=== PATIENT | female | born 1980 | race Caucasian/White ===

== ENCOUNTER 2021-01-22 12:52 | Emergency (ER) | payer MEDICAID ==
[~2021-01-22] VITALS: Ht 165.1 cm; Wt 77.0 kg
[2021-01-22] MEDS ORDERED: ACETAMINOPHEN 325MG TABLET PO STA (15:06)
[2021-01-22] MEDS ORDERED: IBUP-2029 PO (16:31)
[2021-01-22] MEDS ORDERED: FLUT9.9S BOTHNSTRLS (16:31)
[2021-01-22] MEDS ORDERED: D-ME473S50 PO (16:31)
[2021-01-22 16:48] VITALS: BP 122/74
== END 2021-01-22 16:48 | disposition home or self-care (01) ==
LOC: ER 12:52
DX: J06.9 Acute upper respiratory infection, unspecified (principal); Z20.822 Contact with and (suspected) exposure to COVID-19
CPT/HCPCS: 71045; 81025; 87426; 99284

== ENCOUNTER 2023-07-27 18:18 | Emergency (ER) | payer MEDICAID ==
[~2023-07-27] VITALS: Ht 165.1 cm; Wt 68.0 kg
[~2023-07-27 18:18] MED LIST: D-ME473S50 PO; FLUT9.9S BOTHNSTRLS; IBUP-2029 PO
[2023-07-27 18:52] VITALS: TEMP 98.9; O2SAT 100
[2023-07-27 19:54] LABS: CLARITY URINE CLOUDY (CLEAR); COLOR URINE ORANGE (YELLOW); GLUCOSE URINE NEGATIVE (NEGATIVE); KETONES URINE NEGATIVE (NEGATIVE); LEUKOCYTE ESTERASE URINE 2+ (NEGATIVE); NITRITE URINE NEGATIVE (NEGATIVE); OCCULT BLOOD URINE 3+ (NEGATIVE); PH URINE >=9.0 (4.5-8.0); PROTEIN URINE 2+ (NEGATIVE); SPECIFIC GRAVITY URINE 1.018 (1.005-1.030)
[2023-07-27 20:10] LABS: BASOPHILS % 0.7 % (0.0-2.0); EOSINOPHILS % 1.2 % (0.0-5.0); HEMATOCRIT. 35.4 % (36.0-48.0); HEMOGLOBIN. 11.5 g/dL (12.0-16.0); LYMPHOCYTES % 14.4 % (20.0-50.0); MEAN CORPUSCULAR HEMOGLOBIN 26.3 pg (28.0-32.0); MEAN CORPUSCULAR HGB CONC 32.6 g/dL (31.0-37.0); MEAN CORPUSCULAR VOLUME 80.6 fL (81.0-99.0); MEAN PLATELET VOLUME 9.2 fl (7.4-10.4); MONOCYTES % 4.7 % (2.0-8.0); PLATELET 353 x1000/uL (130-400); RED BLOOD CELL COUNT 4.39 mill/uL (4.2-5.4); RED CELL DISTRIBUTION WIDTH 15.7 % (11.6-14.6); WHITE BLOOD COUNT 10.9 x1000/uL (4.5-11.0)
[2023-07-27 20:33] LABS: ALANINE AMINOTRANSFERASE 10 IU/L (10-49); ALBUMIN 4.1 g/dL (3.2-4.8); ASPARTATE AMINOTRANSFERASE 19 IU/L (<34); BILIRUBIN TOTAL 0.3 mg/dL (0.1-1.0); CALCIUM 8.7 mg/dL (8.7-10.4); CARBON DIOXIDE 27 mEq/L (21-32); CHLORIDE 106 mEq/L (98-107); CREATININE 0.7 mg/dL (0.6-1.0); GLUCOSE 87 mg/dL (70-105); POTASSIUM 3.7 mEq/L (3.5-5.1); PROTEIN TOTAL 7.6 g/dL (6.0-8.3); SODIUM 138 mEq/L (136-145); UREA NITROGEN BLOOD 5 mg/dL (9-23)
[2023-07-27 21:03] LABS: BACTERIA URINE 3+; RBC URINE TNTC /hpf (0-2); SQUAMOUS EPITHELIAL CELL URINE 2+ /lpf (RARE/1+); WBC URINE 15-25 /hpf (0-2)
[2023-07-27 21:15] VITALS: BP 118/62; PULSE 93; RESP 18
[2023-07-27] MEDS: CEFTRIAXONE SODIUM 1G VIAL IM ONE (21:15)
[2023-07-27] MEDS: ONDANSETRON 4MG ODT PO ONE (21:15)
[2023-07-27] MEDS: KETOROLAC 30MG/ML VIAL IM ONE (21:15)
[2023-07-27 22:09] LABS: HCG SCREEN NEGATIVE
[2023-07-27] MEDS ORDERED: CEFP200T13 MT (22:31)
[2023-07-27] MEDS ORDERED: PHEN-815 MT (22:31)
== END 2023-07-27 23:10 | disposition home or self-care (01) ==
LOC: ER 18:18
DX: N12 Tubulo-interstitial nephritis, not specified as acute or chronic (principal); Z79.899 Other long term (current) drug therapy
CPT/HCPCS: 99285; 76770; 80053; 81003; 81025; 84703; 85025; 87086; 36415; 96372; Q0162; J0696; J1885

== ENCOUNTER 2023-07-29 14:27 | Emergency (ER) | payer MEDICAID ==
[~2023-07-29] VITALS: Ht 165.1 cm; Wt 77.0 kg
[~2023-07-29 14:27] MED LIST changes: +CEFP200T13 MT; +PHEN-815 MT
[2023-07-29 14:45] VITALS: BP 122/72; PULSE 72; RESP 18; TEMP 98.3; O2SAT 100
[2023-07-29] MEDS ORDERED: SULF1TAB48 MT (14:47)
== END 2023-07-29 15:24 | disposition home or self-care (01) ==
LOC: ER 14:27
DX: R11.2 Nausea with vomiting, unspecified (principal); T36.95XA Adverse effect of unspecified systemic antibiotic, initial encounter; N12 Tubulo-interstitial nephritis, not specified as acute or chronic; Z88.8 Allergy status to other drugs, medicaments and biological substances; Y92.89 Other specified places as the place of occurrence of the external cause
CPT/HCPCS: 99283

== ENCOUNTER 2023-12-14 23:12 | Emergency (ER) | payer SELFPAY ==
[~2023-12-14] VITALS: Ht 165.1 cm; Wt 73.0 kg
[~2023-12-14 23:12] MED LIST changes: +SULF1TAB48 MT
[2023-12-14 23:28] VITALS: BP 124/77; PULSE 85; RESP 20; O2SAT 100
[2023-12-14 23:53] LABS: BASOPHILS % 1.1 % (0.0-2.0); EOSINOPHILS % 1.9 % (0.0-5.0); HEMATOCRIT. 36.2 % (36.0-48.0); LYMPHOCYTES % 30.7 % (20.0-50.0); MEAN CORPUSCULAR HEMOGLOBIN 26.9 pg (28.0-32.0); MEAN CORPUSCULAR VOLUME 81.5 fL (81.0-99.0); MEAN PLATELET VOLUME 8.5 fl (7.4-10.4); MONOCYTES % 6.7 % (2.0-8.0); NEUTROPHILS % 59.6 % (40.0-76.0); PLATELET 402 x1000/uL (130-400); RED BLOOD CELL COUNT 4.44 mill/uL (4.2-5.4); RED CELL DISTRIBUTION WIDTH 16.3 % (11.6-14.6); WHITE BLOOD COUNT 7.1 x1000/uL (4.5-11.0)
[2023-12-14 23:58] LABS: CHLORIDE 110 mEq/L (98-107); POTASSIUM 3.6 mEq/L (3.5-5.1); SODIUM 138 mEq/L (136-145)
[2023-12-14 23:59] LABS: CALCIUM 9.3 mg/dL (8.7-10.4); CARBON DIOXIDE 22 mEq/L (21-32)
[2023-12-15 00:04] LABS: CREATININE 0.6 mg/dL (0.6-1.0); GLUCOSE 89 mg/dL (70-105); UREA NITROGEN BLOOD 9 mg/dL (9-23)
[2023-12-15 00:06] LABS: ALANINE AMINOTRANSFERASE 13 IU/L (10-49); ALBUMIN 4.6 g/dL (3.2-4.8); ASPARTATE AMINOTRANSFERASE 21 IU/L (<34)
[2023-12-15 00:07] LABS: BILIRUBIN TOTAL 0.3 mg/dL (0.1-1.0); PROTEIN TOTAL 7.8 g/dL (6.0-8.3)
[2023-12-15 00:15] LABS: BILIRUBIN DIRECT < 0.1 mg/dL (<=3.0)
[2023-12-15 00:16] LABS: TROPONIN I HIGH SENSITIVITY < 4 ng/L (3.0-34)
[2023-12-15 00:35] LABS: CLARITY URINE CLEAR (CLEAR); COLOR URINE YELLOW (YELLOW); GLUCOSE URINE NEGATIVE (NEGATIVE); KETONES URINE NEGATIVE (NEGATIVE); LEUKOCYTE ESTERASE URINE NEGATIVE (NEGATIVE); NITRITE URINE NEGATIVE (NEGATIVE); OCCULT BLOOD URINE NEGATIVE (NEGATIVE); PROTEIN URINE NEGATIVE (NEGATIVE); SPECIFIC GRAVITY URINE 1.002 (1.005-1.030); UROBILINOGEN URINE 0.2 E.U./dL (0.2-1.0)
[2023-12-15 00:44] LABS: HCG SCREEN NEGATIVE
[2023-12-15] MEDS ORDERED: ONDANSETRON HCL 4MG/2ML INJ IM ONE (01:00)
[2023-12-15] MEDS ORDERED: ONDA4TAB50 MT (03:44)
[2023-12-15] MEDS ORDERED: PROT20 MT (03:44)
[2023-12-15] MEDS: ONDANSETRON HCL 4MG/2ML INJ IM NR (04:32)
== END 2023-12-15 04:41 | disposition home or self-care (01) ==
LOC: ER 23:12
DX: R10.13 Epigastric pain (principal); R11.2 Nausea with vomiting, unspecified; Z88.8 Allergy status to other drugs, medicaments and biological substances; Z79.899 Other long term (current) drug therapy
CPT/HCPCS: 99285; 80076; 80048; 84703; 83690; 85025; 84484; 36415; 93005; 74176; 81003; 96372; J2405

== ENCOUNTER 2024-06-18 21:37 | Inpatient (IN) | payer SELFPAY ==
[~2024-06-18] VITALS: Ht 154.9 cm; Wt 78.0 kg
[~2024-06-18 21:37] MED LIST changes: +ONDA4TAB50 MT; +PROT20 MT
[2024-06-18 21:40] VITALS: O2SAT 99
[2024-06-18 22:38] LABS: CLARITY URINE CLEAR (CLEAR); COLOR URINE YELLOW (YELLOW); GLUCOSE URINE NEGATIVE (NEGATIVE); KETONES URINE NEGATIVE (NEGATIVE); LEUKOCYTE ESTERASE URINE NEGATIVE (NEGATIVE); NITRITE URINE NEGATIVE (NEGATIVE); OCCULT BLOOD URINE 3+ (NEGATIVE); PH URINE 6.5 (4.5-8.0); PROTEIN URINE NEGATIVE (NEGATIVE); SPECIFIC GRAVITY URINE 1.007 (1.005-1.030)
[2024-06-18 22:52] LABS: BACTERIA URINE NONE SEEN; RBC URINE 0-2 /hpf (0-2); SQUAMOUS EPITHELIAL CELL URINE RARE /lpf (RARE/1+); WBC URINE 0-2 /hpf (0-2)
[2024-06-18 23:25] LABS: CHLORIDE 104 mEq/L (98-107); POTASSIUM 3.4 mEq/L (3.5-5.1); SODIUM 139 mEq/L (136-145)
[2024-06-18 23:26] LABS: CALCIUM 8.8 mg/dL (8.7-10.4); CARBON DIOXIDE 28 mEq/L (21-32); HEMATOCRIT. 34.5 % (36.0-48.0); HEMOGLOBIN. 11.4 g/dL (12.0-16.0); MEAN CORPUSCULAR HEMOGLOBIN 26.8 pg (28.0-32.0); MEAN CORPUSCULAR HGB CONC 33.1 g/dL (31.0-37.0); MEAN CORPUSCULAR VOLUME 81.1 fL (81.0-99.0); MEAN PLATELET VOLUME 8.5 fl (7.4-10.4); PLATELET 442 x1000/uL (130-400); RED BLOOD CELL COUNT 4.25 mill/uL (4.2-5.4); RED CELL DISTRIBUTION WIDTH 15.6 % (11.6-14.6); WHITE BLOOD COUNT 12.2 x1000/uL (4.5-11.0)
[2024-06-18 23:31] LABS: CREATININE 0.6 mg/dL (0.6-1.0); GLUCOSE 112 mg/dL (70-105); UREA NITROGEN BLOOD 5 mg/dL (9-23)
[2024-06-18 23:49] LABS: TROPONIN I HIGH SENSITIVITY < 4 ng/L (3.0-34)
[2024-06-19 00:22] LABS: DIFFERENTIAL COMMENT 1
[2024-06-19] MEDS: LORAZEPAM 1MG TABLET PO ONE (00:23)
[2024-06-19 00:30] LABS: HCG SCREEN NEGATIVE
[2024-06-19] MEDS ORDERED: AZITHROMYCIN 500MG/250ML 250 ML IV SCH (01:30)
[2024-06-19] MEDS ORDERED: CEFTRIAXONE 1GM/50ML 50 ML IV ONE (01:30)
[2024-06-19 01:34] LABS: TROPONIN I HIGH SENSITIVITY < 4 ng/L (3.0-34)
[2024-06-19 02:33] LABS: ANISOCYTOSIS 1+; PLATELET ESTIMATE SLIGHTLY INCREASED
[2024-06-19 03:15] VITALS: BP 133/83; PULSE 100; RESP 18; TEMP 37; O2SAT 98
[2024-06-19] MEDS ORDERED: CEFTRIAXONE 1GM/50ML 50 ML IV SCH ×2 (04:30→06:45)
[2024-06-19] MEDS ORDERED: CLONIDINE 0.1MG TABLET PO SCH (06:00)
[2024-06-19] MEDS ORDERED: CLONIDINE 0.1MG TABLET PO PRN (06:15)
[2024-06-19] MEDS ORDERED: DOCUSATE SODIUM 100MG CAPSULE PO PRN (06:45)
[2024-06-19] MEDS ORDERED: ONDANSETRON HCL 4MG/2ML INJ IV PRN (06:45)
[2024-06-19] MEDS ORDERED: MAGNESIUM/ALUMINUM HYDROXIDE/SIMETHICONE 30ML UDC PO PRN (06:45)
[2024-06-19 08:00] VITALS: BP 96/41; PULSE 79; RESP 18; TEMP 36.8; O2SAT 100
[2024-06-19] MEDS: IOHEXOL-350 100 ML BOTTLE ONE (09:19)
[2024-06-19 09:25] LABS: HEMATOCRIT. 34.6 % (36.0-48.0); HEMOGLOBIN. 11.3 g/dL (12.0-16.0); MEAN CORPUSCULAR HEMOGLOBIN 26.8 pg (28.0-32.0); MEAN CORPUSCULAR HGB CONC 32.6 g/dL (31.0-37.0); MEAN CORPUSCULAR VOLUME 82.1 fL (81.0-99.0); MEAN PLATELET VOLUME 8.6 fl (7.4-10.4); PLATELET 424 x1000/uL (130-400); RED BLOOD CELL COUNT 4.21 mill/uL (4.2-5.4)
[2024-06-19 09:27] LABS: DIFFERENTIAL COMMENT 1
[2024-06-19] MEDS: ENOXAPARIN 40MG/0.4ML SYR SUBCUT SCH (09:50)
[2024-06-19] MEDS: ACETAMINOPHEN 325MG TABLET PO PRN (09:56)
[2024-06-19 10:29] LABS: CHLORIDE 104 mEq/L (98-107); POTASSIUM 3.5 mEq/L (3.5-5.1); SODIUM 139 mEq/L (136-145)
[2024-06-19 10:30] LABS: CALCIUM 8.9 mg/dL (8.7-10.4); CARBON DIOXIDE 25 mEq/L (21-32)
[2024-06-19 10:35] LABS: CREATININE 0.6 mg/dL (0.6-1.0); GLUCOSE 88 mg/dL (70-105)
[2024-06-19 10:37] LABS: ALANINE AMINOTRANSFERASE 16 IU/L (10-49); ALBUMIN 3.7 g/dL (3.2-4.8); ASPARTATE AMINOTRANSFERASE 21 IU/L (<34); BILIRUBIN TOTAL 0.4 mg/dL (0.1-1.0); PROTEIN TOTAL 7.1 g/dL (6.0-8.3)
[2024-06-19 10:52] LABS: TROPONIN I HIGH SENSITIVITY < 4 ng/L (3.0-34); UREA NITROGEN BLOOD < 5 mg/dL (9-23)
[2024-06-19 12:00] VITALS: BP 104/44; PULSE 77; RESP 20; TEMP 36.4; O2SAT 98
[2024-06-19] MEDS: KETOROLAC 15MG/ML VIAL IV NR (15:14)
[2024-06-19 16:00] VITALS: BP 105/49; PULSE 83; RESP 18; TEMP 36.9; O2SAT 99
[2024-06-19 16:25] LABS: PLATELET ESTIMATE NORMAL
[2024-06-19 20:00] VITALS: BP 113/54; PULSE 96; RESP 19; TEMP 37.2; O2SAT 99
[2024-06-19] MEDS: HYDROCODONE/ACETAMINOPHEN 5/325MG TABLET PO PRN (20:06)
[2024-06-19] MEDS ORDERED: NALOXONE HCL 0.4MG/ML VIAL IV PRN (21:30)
[2024-06-19] MEDS: MORPHINE SULFATE 2 MG/ML INJ (NOT FOR IM USE) IV PRN (22:24)
[2024-06-19] MEDS: LIDOCAINE 5% PATCH TOP PRN (22:25)
[2024-06-19] MEDS: GUAIFENESIN 200MG/10ML SUGAR FREE UDC PO PRN (22:36)
[2024-06-20] VITALS: BP 104/49; PULSE 88; RESP 14; TEMP 37.3; O2SAT 99
[2024-06-20 04:00] VITALS: BP 110/54; PULSE 102; RESP 17; TEMP 36.2; O2SAT 94
[2024-06-20 06:04] LABS: *AMPHETAMINES SCREEN URINE PRESUMPTIVE POSITIVE (NEGATIVE)
[2024-06-20 06:05] LABS: *BARBITURATES SCREEN URINE NEGATIVE (NEGATIVE); *BENZODIAZEPINES SCREEN URINE NEGATIVE (NEGATIVE); *COCAINE SCREEN URINE NEGATIVE (NEGATIVE); CANNABINOID URINE SCREEN NEGATIVE (NEGATIVE); ECSTASY MDMA SCREEN URINE NEGATIVE (NEGATIVE); METHADONE URINE SCREEN NEGATIVE (NEGATIVE); OPIATES URINE SCREEN PRESUMPTIVE POSITIVE (NEGATIVE); PHENCYCLIDINE URINE SCREEN NEGATIVE (NEGATIVE)
[2024-06-20] MEDS: LEVOFLOXACIN 750MG PREMIX 150 ML IV SCH (06:35)
[2024-06-20 08:00] VITALS: BP 109/49; PULSE 91; RESP 18; TEMP 36.7; O2SAT 98
[2024-06-20 12:00] VITALS: BP 119/67; PULSE 87; RESP 17; TEMP 36.3; O2SAT 95
[2024-06-20 13:18] LABS: BASOPHILS % 0.1 % (0.0-2.0); EOSINOPHILS % 14.2 % (0.0-5.0); HEMATOCRIT. 35.7 % (36.0-48.0); HEMOGLOBIN. 11.4 g/dL (12.0-16.0); LYMPHOCYTES % 9.1 % (20.0-50.0); MEAN CORPUSCULAR HEMOGLOBIN 25.7 pg (28.0-32.0); MEAN CORPUSCULAR HGB CONC 31.8 g/dL (31.0-37.0); MEAN PLATELET VOLUME 8.9 fl (7.4-10.4); MONOCYTES % 4.5 % (2.0-8.0); NEUTROPHILS % 72.1 % (40.0-76.0); PLATELET 463 x1000/uL (130-400); RED BLOOD CELL COUNT 4.41 mill/uL (4.2-5.4); RED CELL DISTRIBUTION WIDTH 15.9 % (11.6-14.6)
[2024-06-20 13:23] LABS: CARBON DIOXIDE 28 mEq/L (21-32); CHLORIDE 102 mEq/L (98-107); POTASSIUM 3.4 mEq/L (3.5-5.1); SODIUM 140 mEq/L (136-145)
[2024-06-20 13:29] LABS: CREATININE 0.6 mg/dL (0.6-1.0); GLUCOSE 56 mg/dL (70-105)
[2024-06-20 13:30] LABS: TROPONIN I HIGH SENSITIVITY < 4 ng/L (3.0-34); UREA NITROGEN BLOOD 7 mg/dL (9-23)
[2024-06-20 13:31] LABS: T4 FREE 1.19 ng/dL (0.89-1.76)
[2024-06-20 13:32] LABS: PHOSPHORUS 2.7 mg/dL (2.5-4.9)
[2024-06-20 14:39] LABS: ERYTHROCYTE SEDIMENTATION RATE 49 mm/hr (0-20)
[2024-06-20 16:00] VITALS: BP_SYST 120; BP_SYST 157; BP_DIAS 57; BP_DIAS 61; PULSE 90; RESP 18; TEMP 37.3; O2SAT 97
[2024-06-20] MEDS: POTASSIUM CHLORIDE 20MEQ TABLET SR PO PRN (18:42)
[2024-06-20 20:00] VITALS: BP 116/75; PULSE 88; RESP 16; TEMP 36.7; O2SAT 98
[2024-06-20] MEDS: ATORVASTATIN CALCIUM 20MG TABLET PO SCH (21:13)
[2024-06-21] VITALS: BP 102/61; PULSE 77; RESP 16; TEMP 36.3; O2SAT 98
[2024-06-21 04:00] VITALS: BP 102/57; PULSE 87; RESP 16; TEMP 36.2; O2SAT 97
[2024-06-21 07:31] LABS: HEMATOCRIT. 33.6 % (36.0-48.0); HEMOGLOBIN. 10.9 g/dL (12.0-16.0); MEAN CORPUSCULAR HEMOGLOBIN 26.8 pg (28.0-32.0); MEAN CORPUSCULAR HGB CONC 32.5 g/dL (31.0-37.0); MEAN CORPUSCULAR VOLUME 82.7 fL (81.0-99.0); MEAN PLATELET VOLUME 8.4 fl (7.4-10.4); PLATELET 407 x1000/uL (130-400); RED BLOOD CELL COUNT 4.07 mill/uL (4.2-5.4); RED CELL DISTRIBUTION WIDTH 16.1 % (11.6-14.6)
[2024-06-21 07:36] LABS: DIFFERENTIAL COMMENT 1
[2024-06-21 07:57] LABS: CHLORIDE 106 mEq/L (98-107); POTASSIUM 3.9 mEq/L (3.5-5.1); SODIUM 139 mEq/L (136-145)
[2024-06-21 07:58] LABS: CALCIUM 8.4 mg/dL (8.7-10.4); CARBON DIOXIDE 26 mEq/L (21-32)
[2024-06-21 08:03] LABS: CREATININE 0.5 mg/dL (0.6-1.0); GLUCOSE 88 mg/dL (70-105); UREA NITROGEN BLOOD 6 mg/dL (9-23)
[2024-06-21 08:05] LABS: PHOSPHORUS 2.3 mg/dL (2.5-4.9)
[2024-06-21] MEDS: ASPIRIN 81MG EC TABLET PO SCH (09:44)
[2024-06-21 13:08] VITALS: BP 105/54; PULSE 78; TEMP 37; O2SAT 99
[2024-06-21] MEDS: MAGNESIUM 2 G PREMIX 50 ML IV NR (14:31)
[2024-06-21 15:14] LABS: ANISOCYTOSIS 1+; PLATELET ESTIMATE SLIGHTLY INCREASED
[2024-06-21 16:54] VITALS: BP 113/62; PULSE 74; TEMP 37.1; O2SAT 99
[2024-06-21 20:00] VITALS: BP 109/59; PULSE 76; RESP 16; TEMP 37.6; O2SAT 100
[2024-06-22] VITALS: BP 107/53; PULSE 71; RESP 17; TEMP 37.2; O2SAT 97
[2024-06-22] MEDS ORDERED: AZITHROMYCIN 500MG in D5W 250ML IV SCH (01:00)
[2024-06-22] MEDS ORDERED: AZITHROMYCIN 500MG/250ML 250 ML IV SCH (01:00)
[2024-06-22 04:00] VITALS: BP 90/50; PULSE 63; RESP 14; TEMP 37.1; O2SAT 63
[2024-06-22 07:57] LABS: CARBON DIOXIDE 25 mEq/L (21-32); CHLORIDE 106 mEq/L (98-107); POTASSIUM 4.1 mEq/L (3.5-5.1); SODIUM 139 mEq/L (136-145)
[2024-06-22 07:58] LABS: CALCIUM 8.8 mg/dL (8.7-10.4); HEMOGLOBIN. 10.7 g/dL (12.0-16.0); MEAN CORPUSCULAR HEMOGLOBIN 26.4 pg (28.0-32.0); MEAN CORPUSCULAR HGB CONC 32.5 g/dL (31.0-37.0); MEAN CORPUSCULAR VOLUME 81.2 fL (81.0-99.0); MEAN PLATELET VOLUME 8.8 fl (7.4-10.4); PLATELET 418 x1000/uL (130-400); RED BLOOD CELL COUNT 4.07 mill/uL (4.2-5.4); WHITE BLOOD COUNT 13.7 x1000/uL (4.5-11.0)
[2024-06-22 08:00] VITALS: BP 104/50; PULSE 69; RESP 16; TEMP 36.2; O2SAT 97
[2024-06-22 08:03] LABS: CREATININE 0.5 mg/dL (0.6-1.0); GLUCOSE 81 mg/dL (70-105); UREA NITROGEN BLOOD 7 mg/dL (9-23)
[2024-06-22 08:20] LABS: DIFFERENTIAL COMMENT 1
[2024-06-22] MEDS ORDERED: CEFTRIAXONE 1GM/50ML 50 ML IV SCH (11:30)
[2024-06-22 12:00] VITALS: BP 102/55; PULSE 72; RESP 15; TEMP 36.6; O2SAT 98
[2024-06-22] MEDS ORDERED: AZITHROMYCIN 250 MG in DEXT 5% WATER 250 ML IV SCH (12:30)
[2024-06-22] MEDS: AZITHROMYCIN 500MG/250ML 250 ML IV SCH (14:09)
[2024-06-22 16:00] VITALS: BP 97/45; PULSE 78; RESP 15; TEMP 36.9; O2SAT 100
[2024-06-22 16:32] LABS: ANISOCYTOSIS 1+; PLATELET ESTIMATE SLIGHTLY INCREASED
[2024-06-22 20:00] VITALS: BP 103/60; PULSE 70; RESP 18; TEMP 36.6; O2SAT 98
[2024-06-23] VITALS: BP 110/56; PULSE 72; RESP 18; TEMP 36.7; O2SAT 99
[2024-06-23 04:00] VITALS: BP 103/55; PULSE 68; RESP 17; TEMP 36.4; O2SAT 97
[2024-06-23 08:00] VITALS: BP 110/71; PULSE 75; RESP 17; TEMP 36.3; O2SAT 99
[2024-06-23 08:23] LABS: HEMATOCRIT. 35.6 % (36.0-48.0); HEMOGLOBIN. 11.4 g/dL (12.0-16.0); MEAN CORPUSCULAR HEMOGLOBIN 26.5 pg (28.0-32.0); MEAN PLATELET VOLUME 9.2 fl (7.4-10.4); PLATELET 465 x1000/uL (130-400); RED BLOOD CELL COUNT 4.29 mill/uL (4.2-5.4); RED CELL DISTRIBUTION WIDTH 16.2 % (11.6-14.6); WHITE BLOOD COUNT 16.3 x1000/uL (4.5-11.0)
[2024-06-23 08:36] LABS: DIFFERENTIAL COMMENT 1
[2024-06-23 08:42] LABS: CHLORIDE 106 mEq/L (98-107); POTASSIUM 4.1 mEq/L (3.5-5.1); SODIUM 139 mEq/L (136-145)
[2024-06-23 08:43] LABS: CALCIUM 8.9 mg/dL (8.7-10.4); CARBON DIOXIDE 23 mEq/L (21-32)
[2024-06-23 08:48] LABS: CREATININE 0.6 mg/dL (0.6-1.0); GLUCOSE 89 mg/dL (70-105); UREA NITROGEN BLOOD 9 mg/dL (9-23)
[2024-06-23 12:00] VITALS: BP 102/54; PULSE 72; RESP 17; TEMP 36.3; O2SAT 98
[2024-06-23 16:00] VITALS: BP 114/52; PULSE 74; RESP 18; TEMP 36.4; O2SAT 98
[2024-06-23] MEDS ORDERED: CEFTRIAXONE 2GM/50ML 50 ML IV SCH (16:00)
[2024-06-23 16:51] LABS: ANISOCYTOSIS 1+; PLATELET ESTIMATE SLIGHTLY INCREASED
[2024-06-23 20:00] VITALS: BP 111/50; PULSE 80; RESP 18; TEMP 36.6; O2SAT 98
[2024-06-23] MEDS: CEFTRIAXONE 2GM/50ML 50 ML IV SCH (20:36)
[2024-06-24] VITALS (7 sets, daily range): BP systolic 100–128; BP diastolic 54–66; PULSE 57–97; RESP 16–20; TEMP 36.1–36.9; O2SAT 98–100
[2024-06-24] MEDS: IPRATROPIUM/ALBUTEROL 0.5-3(2.5)MG/3ML NEB HHN PRN (04:15)
[2024-06-24 07:04] LABS: CHLORIDE 105 mEq/L (98-107); POTASSIUM 4.3 mEq/L (3.5-5.1); SODIUM 139 mEq/L (136-145)
[2024-06-24 07:05] LABS: CARBON DIOXIDE 26 mEq/L (21-32)
[2024-06-24 07:06] LABS: CALCIUM 8.8 mg/dL (8.7-10.4)
[2024-06-24 07:10] LABS: CREATININE 0.6 mg/dL (0.6-1.0)
[2024-06-24 07:11] LABS: GLUCOSE 89 mg/dL (70-105); UREA NITROGEN BLOOD 9 mg/dL (9-23)
[2024-06-24 07:30] LABS: HEMATOCRIT. 34.1 % (36.0-48.0); HEMOGLOBIN. 11.1 g/dL (12.0-16.0); MEAN CORPUSCULAR HGB CONC 32.5 g/dL (31.0-37.0); MEAN CORPUSCULAR VOLUME 83.2 fL (81.0-99.0); MEAN PLATELET VOLUME 9.1 fl (7.4-10.4); PLATELET 439 x1000/uL (130-400); RED BLOOD CELL COUNT 4.09 mill/uL (4.2-5.4); RED CELL DISTRIBUTION WIDTH 16.2 % (11.6-14.6); WHITE BLOOD COUNT 16.8 x1000/uL (4.5-11.0)
[2024-06-24 07:44] LABS: DIFFERENTIAL COMMENT 1
[2024-06-24] MEDS ORDERED: CYCLOBENZAPRINE 10MG TABLET PO PRN (09:15)
[2024-06-24 15:01] LABS: ANISOCYTOSIS 1+; PLATELET ESTIMATE SLIGHTLY INCREASED
[2024-06-24] MEDS ORDERED: CEFTRIAXONE 2GM/50ML 50 ML IV SCH (20:00)
[2024-06-24] MEDS: CEFTRIAXONE SODIUM 2G VIAL IM SCH (20:59)
[2024-06-25] VITALS: BP 120/68; PULSE 88; RESP 20; TEMP 36.6; O2SAT 99
[2024-06-25 04:00] VITALS: BP 112/63; PULSE 70; RESP 20; TEMP 36.5; O2SAT 98
[2024-06-25 07:28] LABS: HEMATOCRIT. 36.2 % (36.0-48.0); HEMOGLOBIN. 11.7 g/dL (12.0-16.0); MEAN CORPUSCULAR HEMOGLOBIN 26.5 pg (28.0-32.0); MEAN CORPUSCULAR HGB CONC 32.4 g/dL (31.0-37.0); MEAN CORPUSCULAR VOLUME 81.7 fL (81.0-99.0); PLATELET 447 x1000/uL (130-400); RED BLOOD CELL COUNT 4.43 mill/uL (4.2-5.4); RED CELL DISTRIBUTION WIDTH 16.2 % (11.6-14.6); WHITE BLOOD COUNT 19.2 x1000/uL (4.5-11.0)
[2024-06-25 07:37] LABS: CHLORIDE 106 mEq/L (98-107); SODIUM 137 mEq/L (136-145)
[2024-06-25 07:38] LABS: CALCIUM 9.1 mg/dL (8.7-10.4); CARBON DIOXIDE 23 mEq/L (21-32)
[2024-06-25 07:41] LABS: DIFFERENTIAL COMMENT 1
[2024-06-25 07:43] LABS: CREATININE 0.5 mg/dL (0.6-1.0); GLUCOSE 94 mg/dL (70-105); UREA NITROGEN BLOOD 9 mg/dL (9-23)
[2024-06-25 08:00] VITALS: BP 110/59; PULSE 75; RESP 20; TEMP 36.5; O2SAT 97
[2024-06-25] MEDS: AZITHROMYCIN 500 MG TABLET PO SCH (08:37)
[2024-06-25 12:00] VITALS: BP 111/72; PULSE 94; RESP 20; TEMP 36.2; O2SAT 99
[2024-06-25 15:44] LABS: ANISOCYTOSIS 1+; PLATELET ESTIMATE SLIGHTLY INCREASED
[2024-06-25 16:00] VITALS: BP 108/66; PULSE 93; RESP 20; TEMP 36.3; O2SAT 100
[2024-06-25 20:00] VITALS: BP 106/61; PULSE 79; RESP 18; TEMP 36.6; O2SAT 99
[2024-06-26] VITALS: BP 115/62; PULSE 75; RESP 18; TEMP 36.5; O2SAT 99
[2024-06-26 04:00] VITALS: BP 104/48; PULSE 77; RESP 18; TEMP 36.6; O2SAT 98
[2024-06-26 06:22] LABS: HEMATOCRIT. 34.4 % (36.0-48.0); HEMOGLOBIN. 11.4 g/dL (12.0-16.0); MEAN CORPUSCULAR HEMOGLOBIN 26.9 pg (28.0-32.0); MEAN CORPUSCULAR HGB CONC 33.1 g/dL (31.0-37.0); MEAN CORPUSCULAR VOLUME 81.2 fL (81.0-99.0); PLATELET 443 x1000/uL (130-400); RED BLOOD CELL COUNT 4.24 mill/uL (4.2-5.4); RED CELL DISTRIBUTION WIDTH 15.9 % (11.6-14.6); WHITE BLOOD COUNT 17.1 x1000/uL (4.5-11.0)
[2024-06-26 06:28] LABS: DIFFERENTIAL COMMENT 1
[2024-06-26 06:45] LABS: CARBON DIOXIDE 25 mEq/L (21-32); CHLORIDE 102 mEq/L (98-107); SODIUM 135 mEq/L (136-145)
[2024-06-26 06:47] LABS: CALCIUM 9.3 mg/dL (8.7-10.4)
[2024-06-26 06:51] LABS: CREATININE 0.6 mg/dL (0.6-1.0); GLUCOSE 90 mg/dL (70-105); UREA NITROGEN BLOOD 8 mg/dL (9-23)
[2024-06-26 08:00] VITALS: BP 95/50; PULSE 72; RESP 16; TEMP 36.2; O2SAT 98
[2024-06-26 12:00] VITALS: BP 119/58; PULSE 83; RESP 18; TEMP 36.2; O2SAT 99
[2024-06-26] MEDS: PIPERACILLIN/TAZO 3.375G/50ML 50 ML IV SCH (14:00)
[2024-06-26 16:00] VITALS: BP 121/67; PULSE 89; RESP 16; TEMP 36.1; O2SAT 96
[2024-06-26 16:28] LABS: PLATELET ESTIMATE NORMAL
[2024-06-26] MEDS: LEVOFLOXACIN 250MG TABLET PO SCH (18:44)
[2024-06-26 20:00] VITALS: BP 115/76; PULSE 98; RESP 18; TEMP 36.1; O2SAT 100
[2024-06-27] VITALS: BP 115/61; PULSE 89; RESP 18; TEMP 36.2; O2SAT 98
[2024-06-27 04:00] VITALS: BP 112/70; PULSE 78; RESP 18; TEMP 36.3; O2SAT 98
[2024-06-27 08:00] VITALS: BP 117/47; PULSE 83; RESP 16; TEMP 37; O2SAT 97
[2024-06-27 08:58] LABS: HEMATOCRIT. 34.5 % (36.0-48.0); HEMOGLOBIN. 11.5 g/dL (12.0-16.0); MEAN CORPUSCULAR HEMOGLOBIN 26.9 pg (28.0-32.0); MEAN CORPUSCULAR HGB CONC 33.4 g/dL (31.0-37.0); MEAN CORPUSCULAR VOLUME 80.6 fL (81.0-99.0); MEAN PLATELET VOLUME 9.1 fl (7.4-10.4); PLATELET 443 x1000/uL (130-400); RED BLOOD CELL COUNT 4.29 mill/uL (4.2-5.4); WHITE BLOOD COUNT 15.8 x1000/uL (4.5-11.0)
[2024-06-27 09:04] LABS: CHLORIDE 104 mEq/L (98-107); POTASSIUM 3.9 mEq/L (3.5-5.1); SODIUM 138 mEq/L (136-145)
[2024-06-27 09:05] LABS: CARBON DIOXIDE 24 mEq/L (21-32)
[2024-06-27 09:06] LABS: CALCIUM 8.9 mg/dL (8.7-10.4)
[2024-06-27 09:10] LABS: CREATININE 0.5 mg/dL (0.6-1.0); GLUCOSE 94 mg/dL (70-105); UREA NITROGEN BLOOD 14 mg/dL (9-23)
[2024-06-27 09:22] LABS: DIFFERENTIAL COMMENT 1
[2024-06-27 12:00] VITALS: BP 106/56; PULSE 85; RESP 16; TEMP 36.6; O2SAT 98
[2024-06-27 20:26] LABS: ANISOCYTOSIS 1+; PLATELET ESTIMATE INCREASED
== END 2024-06-27 13:05 | disposition left against medical advice (07) | DRG 720 ==
LOC: ER 21:37 → 5WST 06-19 01:04 → EDBEDREQTM 06-19 01:46 → EDBEDREQ 06-19 01:46 → 7EST 06-22 22:40
PROVIDERS: ADMIT Family Medicine Adult Medicine; ATTEND Family Medicine Adult Medicine
DX: A41.9 Sepsis, unspecified organism (principal); J18.9 Pneumonia, unspecified organism; E87.6 Hypokalemia; Z53.29 Procedure and treatment not carried out because of patient's decision for other reasons; F15.10 Other stimulant abuse, uncomplicated; D64.9 Anemia, unspecified; F41.0 Panic disorder [episodic paroxysmal anxiety]; Z87.01 Personal history of pneumonia (recurrent); Z88.1 Allergy status to other antibiotic agents
CPT/HCPCS: 36415; 71045; 71046; 71275; 80048; 80053; 80305; 81003; 83036; 83735; 84100; 84145; 84439; 84484; 84703; 85025; 85651; 93005; 93306; 93970; 94640; 99285; A4606; C1893; J0456; J0696; J1650; J1885; J1956; J2270; J3475; J7060; Q9967

== ENCOUNTER 2024-07-25 23:50 | Inpatient (IN) | payer OTHER, MEDICAID ==
[~2024-07-25] VITALS: Ht 165.1 cm; Wt 79.8 kg
[2024-07-26] MEDS: SODIUM CHLORIDE 0.9% 1,000 ML IV NR ×2 (01:21→06:44)
[2024-07-26 01:27] LABS: BASOPHILS % 0.6 % (0.0-2.0); EOSINOPHILS % 1.5 % (0.0-5.0); HEMATOCRIT. 33.2 % (36.0-48.0); HEMOGLOBIN. 10.5 g/dL (12.0-16.0); LYMPHOCYTES % 10.4 % (20.0-50.0); MEAN CORPUSCULAR HEMOGLOBIN 25.6 pg (28.0-32.0); MEAN CORPUSCULAR HGB CONC 31.6 g/dL (31.0-37.0); MEAN CORPUSCULAR VOLUME 81.2 fL (81.0-99.0); MONOCYTES % 5.2 % (2.0-8.0); NEUTROPHILS % 82.3 % (40.0-76.0); PLATELET 378 x1000/uL (130-400); RED BLOOD CELL COUNT 4.09 mill/uL (4.2-5.4); RED CELL DISTRIBUTION WIDTH 15.6 % (11.6-14.6); WHITE BLOOD COUNT 14.4 x1000/uL (4.5-11.0)
[2024-07-26 01:38] LABS: CHLORIDE 104 mEq/L (98-107); POTASSIUM 3.3 mEq/L (3.5-5.1); SODIUM 138 mEq/L (136-145)
[2024-07-26 01:39] LABS: CALCIUM 8.9 mg/dL (8.7-10.4); CARBON DIOXIDE 23 mEq/L (21-32)
[2024-07-26 01:44] LABS: CREATININE 0.7 mg/dL (0.6-1.0); GLUCOSE 117 mg/dL (70-105); UREA NITROGEN BLOOD 9 mg/dL (9-23)
[2024-07-26 01:45] LABS: ETHANOL BLOOD < 10 mg/dL (<10)
[2024-07-26 01:52] LABS: TROPONIN I HIGH SENSITIVITY < 4 ng/L (3.0-34)
[2024-07-26] MEDS: ACETAMINOPHEN 325MG TABLET PO NR (02:26)
[2024-07-26 02:45] LABS: CLARITY URINE CLEAR (CLEAR); COLOR URINE YELLOW (YELLOW); GLUCOSE URINE NEGATIVE (NEGATIVE); KETONES URINE NEGATIVE (NEGATIVE); LEUKOCYTE ESTERASE URINE NEGATIVE (NEGATIVE); NITRITE URINE NEGATIVE (NEGATIVE); OCCULT BLOOD URINE TRACE (NEGATIVE); PH URINE 5.5 (4.5-8.0); PROTEIN URINE NEGATIVE (NEGATIVE); SPECIFIC GRAVITY URINE 1.008 (1.005-1.030); UROBILINOGEN URINE 0.2 E.U./dL (0.2-1.0)
[2024-07-26 02:57] LABS: *AMPHETAMINES SCREEN URINE NEGATIVE (NEGATIVE); *BARBITURATES SCREEN URINE NEGATIVE (NEGATIVE); *BENZODIAZEPINES SCREEN URINE NEGATIVE (NEGATIVE); *COCAINE SCREEN URINE NEGATIVE (NEGATIVE); METHADONE URINE SCREEN NEGATIVE (NEGATIVE); OPIATES URINE SCREEN NEGATIVE (NEGATIVE)
[2024-07-26 02:58] LABS: CANNABINOID URINE SCREEN NEGATIVE (NEGATIVE); ECSTASY MDMA SCREEN URINE NEGATIVE (NEGATIVE); PHENCYCLIDINE URINE SCREEN NEGATIVE (NEGATIVE)
[2024-07-26 03:10] LABS: HCG SCREEN NEGATIVE
[2024-07-26 03:14] LABS: PARTIAL THROMBOPLASTIN TIME 21.8 sec (23.4-31.0); PROTHROMBIN TIME 10.6 sec (9.6-11.0)
[2024-07-26] MEDS: KETOROLAC 15MG/ML VIAL IV ONE (04:59)
[2024-07-26] MEDS: DEXAMETHASONE 10 MG/ML VIAL IV ONE (05:00)
[2024-07-26] MEDS: METOCLOPRAMIDE HCL 10MG/2ML VIAL IV ONE (05:00)
[2024-07-26] MEDS: POTASSIUM CHLORIDE 20MEQ/PACKET PO NR (05:17)
[2024-07-26 05:18] LABS: SQUAMOUS EPITHELIAL CELL URINE FEW /lpf (RARE/1+)
[2024-07-26 05:19] LABS: BACTERIA URINE NONE SEEN; RBC URINE 0-2 /hpf (0-2); WBC URINE 0-2 /hpf (0-2)
[2024-07-26] MEDS ORDERED: ACETAMINOPHEN 325MG TABLET PO PRN ×2 (06:15)
[2024-07-26] MEDS ORDERED: DOCUSATE SODIUM 100MG CAPSULE PO PRN (06:15)
[2024-07-26] MEDS ORDERED: GUAIFENESIN 200MG/10ML SUGAR FREE UDC PO PRN (06:15)
[2024-07-26] MEDS ORDERED: IPRATROPIUM/ALBUTEROL 0.5-3(2.5)MG/3ML NEB HHN PRN (06:15)
[2024-07-26] MEDS ORDERED: MAGNESIUM/ALUMINUM HYDROXIDE/SIMETHICONE 30ML UDC PO PRN (06:15)
[2024-07-26] MEDS ORDERED: ONDANSETRON HCL 4MG/2ML INJ IV PRN (06:15)
[2024-07-26] MEDS ORDERED: CLONIDINE 0.1MG TABLET PO PRN (06:15)
[2024-07-26 06:54] LABS: BASOPHILS % 0.8 % (0.0-2.0); EOSINOPHILS % 2.8 % (0.0-5.0); HEMATOCRIT. 30.8 % (36.0-48.0); HEMOGLOBIN. 10.1 g/dL (12.0-16.0); LYMPHOCYTES % 12.5 % (20.0-50.0); MEAN CORPUSCULAR HEMOGLOBIN 26.2 pg (28.0-32.0); MEAN CORPUSCULAR HGB CONC 32.7 g/dL (31.0-37.0); MEAN CORPUSCULAR VOLUME 80.2 fL (81.0-99.0); MONOCYTES % 3.2 % (2.0-8.0); NEUTROPHILS % 80.7 % (40.0-76.0); PLATELET 327 x1000/uL (130-400); RED BLOOD CELL COUNT 3.85 mill/uL (4.2-5.4); RED CELL DISTRIBUTION WIDTH 15.7 % (11.6-14.6); WHITE BLOOD COUNT 10.9 x1000/uL (4.5-11.0)
[2024-07-26 06:59] LABS: D-DIMER 0.2 mg/L FEU (<0.50); PROTHROMBIN TIME 10.7 sec (9.6-11.0)
[2024-07-26 07:11] LABS: CARBON DIOXIDE 24 mEq/L (21-32); CHLORIDE 112 mEq/L (98-107); POTASSIUM 4.8 mEq/L (3.5-5.1); SODIUM 141 mEq/L (136-145)
[2024-07-26 07:12] LABS: CALCIUM 8.6 mg/dL (8.7-10.4)
[2024-07-26 07:16] LABS: CREATININE 0.5 mg/dL (0.6-1.0); IRON 44 ug/dL (50-170)
[2024-07-26 07:17] LABS: GLUCOSE 111 mg/dL (70-105); TRIGLYCERIDE 115 mg/dL (0-150); UREA NITROGEN BLOOD 7 mg/dL (9-23)
[2024-07-26 07:18] LABS: LDL CHOLESTEROL 71 mg/dL (5-100)
[2024-07-26 07:19] LABS: CHOLESTEROL 143 mg/dL (<200); HDL CHOLESTEROL 60 mg/dL (>65); PHOSPHORUS 2.6 mg/dL (2.5-4.9); TOTAL IRON BINDING CAPACITY 357 ug/dl (250-425)
[2024-07-26 07:21] LABS: THYROID STIMULATING HORMONE 0.96 uIU/mL (0.55-4.78)
[2024-07-26 08:00] VITALS: BP 104/57; PULSE 57; RESP 16; TEMP 36.6; O2SAT 100
[2024-07-26 08:30] VITALS: BP 104/57; PULSE 57; RESP 16; TEMP 36.6
[2024-07-26] MEDS: PANTOPRAZOLE 40MG DR TABLET PO SCH (10:38)
[2024-07-26 12:00] VITALS: BP 143/77; PULSE 71; RESP 18; TEMP 36.6; O2SAT 100
[2024-07-26 16:00] VITALS: BP 110/61; PULSE 70; RESP 16; TEMP 36.7; O2SAT 100
[2024-07-26 20:00] VITALS: BP 104/60; PULSE 63; RESP 16; TEMP 36.6; O2SAT 100
[2024-07-26 20:43] LABS: CREATINE KINASE MB FRACTION < 0.5 ng/mL (0.5-3.6)
[2024-07-26 20:48] LABS: CREATINE KINASE 45 IU/L (34-145)
[2024-07-26 21:00] LABS: TROPONIN I HIGH SENSITIVITY < 4 ng/L (3.0-34)
[2024-07-27] VITALS: BP 113/63; PULSE 60; RESP 18; TEMP 36.5; O2SAT 100
[2024-07-27 04:00] VITALS: BP 98/51; PULSE 58; RESP 16; TEMP 36.6; O2SAT 99
[2024-07-27 06:36] LABS: BASOPHILS % 0.5 % (0.0-2.0); EOSINOPHILS % 0.6 % (0.0-5.0); HEMATOCRIT. 30.7 % (36.0-48.0); HEMOGLOBIN. 9.9 g/dL (12.0-16.0); LYMPHOCYTES % 20.4 % (20.0-50.0); MEAN CORPUSCULAR HEMOGLOBIN 26.1 pg (28.0-32.0); MEAN CORPUSCULAR HGB CONC 32.2 g/dL (31.0-37.0); MEAN CORPUSCULAR VOLUME 81.2 fL (81.0-99.0); MEAN PLATELET VOLUME 9.6 fl (7.4-10.4); MONOCYTES % 6.2 % (2.0-8.0); NEUTROPHILS % 72.3 % (40.0-76.0); PLATELET 308 x1000/uL (130-400); RED BLOOD CELL COUNT 3.77 mill/uL (4.2-5.4); RED CELL DISTRIBUTION WIDTH 15.9 % (11.6-14.6); WHITE BLOOD COUNT 10.9 x1000/uL (4.5-11.0)
[2024-07-27 06:58] LABS: CHLORIDE 107 mEq/L (98-107); POTASSIUM 3.7 mEq/L (3.5-5.1); SODIUM 142 mEq/L (136-145)
[2024-07-27 06:59] LABS: CALCIUM 9.1 mg/dL (8.7-10.4); CARBON DIOXIDE 26 mEq/L (21-32)
[2024-07-27 07:03] LABS: CREATINE KINASE MB FRACTION < 0.5 ng/mL (0.5-3.6)
[2024-07-27 07:04] LABS: CREATININE 0.5 mg/dL (0.6-1.0); GLUCOSE 109 mg/dL (70-105); UREA NITROGEN BLOOD 8 mg/dL (9-23)
[2024-07-27 07:05] LABS: ALBUMIN 3.3 g/dL (3.2-4.8); PROTEIN TOTAL 6.3 g/dL (6.0-8.3)
[2024-07-27 07:06] LABS: ALANINE AMINOTRANSFERASE 8 IU/L (10-49); ASPARTATE AMINOTRANSFERASE 12 IU/L (<34); BILIRUBIN DIRECT 0.1 mg/dL (<=3.0); BILIRUBIN TOTAL 0.4 mg/dL (0.1-1.0); CREATINE KINASE 34 IU/L (34-145); PHOSPHORUS 2.8 mg/dL (2.5-4.9)
[2024-07-27 07:10] LABS: TROPONIN I HIGH SENSITIVITY < 4 ng/L (3.0-34)
[2024-07-27 08:00] VITALS: BP 106/43; PULSE 73; RESP 18; TEMP 36.6; O2SAT 98
[2024-07-27 12:00] VITALS: BP 106/50; PULSE 60; RESP 18; TEMP 36.6; O2SAT 100
[2024-07-27 12:03] VITALS: BP 128/73
[2024-07-27 16:01] VITALS: BP 128/64; PULSE 61; TEMP 97.9; O2SAT 98
== END 2024-07-27 17:18 | disposition home or self-care (01) | DRG 57 ==
LOC: ER 23:50 → 8WST 07-26 04:38 → EDBEDREQ 07-26 04:58 → EDBEDREQTM 07-26 04:58
PROVIDERS: ADMIT Internal Medicine; ATTEND Internal Medicine
DX: S06.0X0A Concussion without loss of consciousness, initial encounter (principal); G90.89 Other disorders of autonomic nervous system; D64.9 Anemia, unspecified; D72.829 Elevated white blood cell count, unspecified; E87.6 Hypokalemia; R73.9 Hyperglycemia, unspecified; R00.1 Bradycardia, unspecified; W18.39XA Other fall on same level, initial encounter; Z88.1 Allergy status to other antibiotic agents; Y93.89 Activity, other specified; Y92.89 Other specified places as the place of occurrence of the external cause; Y99.8 Other external cause status
CPT/HCPCS: 36415; 71045; 80048; 80061; 80076; 80305; 80320; 81003; 82550; 82553; 82728; 83540; 83550; 83735; 83880; 84100; 84439; 84443; 84484; 84703; 85025; 85379; 93005; 93880; 93970; 99285; J1100; J1885; J2765; G0480

== ENCOUNTER 2024-09-08 09:52 | Emergency (ER) | payer MEDICAID ==
[~2024-09-08] VITALS: Ht 162.6 cm; Wt 65.0 kg
[2024-09-08 09:55] VITALS: O2SAT 100
[2024-09-08] MEDS: ONDANSETRON HCL 4MG/2ML INJ IV STA (10:25)
[2024-09-08] MEDS: SODIUM CHLORIDE 0.9% 1,000 ML IV ONE (10:26)
[2024-09-08] MEDS: MORPHINE SULFATE 4 MG/ML INJ (FOR IV/IM USE) IV STA (10:26)
[2024-09-08 10:48] LABS: BASOPHILS % 1.2 % (0.0-2.0); DIFFERENTIAL COMMENT 0; EOSINOPHILS % 2.8 % (0.0-5.0); HEMATOCRIT. 32.5 % (36.0-48.0); HEMOGLOBIN. 10.4 g/dL (12.0-16.0); LYMPHOCYTES % 28.6 % (20.0-50.0); MEAN CORPUSCULAR HEMOGLOBIN 25.1 pg (28.0-32.0); MEAN CORPUSCULAR VOLUME 78.4 fL (81.0-99.0); MEAN PLATELET VOLUME 8.5 fl (7.4-10.4); MONOCYTES % 7.6 % (2.0-8.0); NEUTROPHILS % 59.8 % (40.0-76.0); PLATELET 306 x1000/uL (130-400); RED BLOOD CELL COUNT 4.14 mill/uL (4.2-5.4); RED CELL DISTRIBUTION WIDTH 16.1 % (11.6-14.6); WHITE BLOOD COUNT 5.2 x1000/uL (4.5-11.0)
[2024-09-08 10:54] LABS: PROTHROMBIN TIME 10.6 sec (9.6-11.0)
[2024-09-08 11:04] LABS: CHLORIDE 106 mEq/L (98-107); POTASSIUM 3.6 mEq/L (3.5-5.1); SODIUM 139 mEq/L (136-145)
[2024-09-08 11:05] LABS: CARBON DIOXIDE 24 mEq/L (21-32)
[2024-09-08 11:06] LABS: CALCIUM 8.5 mg/dL (8.7-10.4)
[2024-09-08 11:08] LABS: HCG SCREEN NEGATIVE
[2024-09-08 11:10] LABS: CREATININE 0.6 mg/dL (0.6-1.0); GLUCOSE 87 mg/dL (70-105); UREA NITROGEN BLOOD 10 mg/dL (9-23)
[2024-09-08 11:12] LABS: ALANINE AMINOTRANSFERASE 24 IU/L (10-49); ALBUMIN 4.1 g/dL (3.2-4.8); ASPARTATE AMINOTRANSFERASE 26 IU/L (<34); CREATINE KINASE 55 IU/L (34-145)
[2024-09-08 11:13] LABS: BILIRUBIN DIRECT 0.2 mg/dL (<=3.0); BILIRUBIN TOTAL 0.7 mg/dL (0.1-1.0); PROTEIN TOTAL 7.3 g/dL (6.0-8.3)
[2024-09-08 11:17] LABS: TROPONIN I HIGH SENSITIVITY < 4 ng/L (3.0-34)
[2024-09-08] MEDS ORDERED: IOHEXOL-300 100 ML BOTTLE ONE (12:04)
[2024-09-08 13:21] LABS: TROPONIN I HIGH SENSITIVITY < 4 ng/L (3.0-34)
[2024-09-08] MEDS ORDERED: METH-773 MT (15:06)
[2024-09-08] MEDS ORDERED: IBUP-2029 MT (15:06)
[2024-09-08 15:44] VITALS: BP 110/55; PULSE 80; RESP 16; TEMP 36.9; O2SAT 100
== END 2024-09-08 15:46 | disposition home or self-care (01) ==
LOC: ER 09:52
DX: M54.2 Cervicalgia (principal); R10.9 Unspecified abdominal pain; R07.89 Other chest pain; I10 Essential (primary) hypertension; F12.90 Cannabis use, unspecified, uncomplicated
CPT/HCPCS: 80076; 80048; 82550; 84703; 85025; 85610; 84484; 36415; 71045; 71260; 72125; 74177; 93005; 96361; 96374; 96375; 99285; Q9967; J2405; J2270; J7030; Z7610 ×2